=== PATIENT | female | born 1965 | race Caucasian/White ===

== ENCOUNTER 2023-05-09 22:31 | Emergency (ER) | payer OTHER ==
[2023-05-09] MEDS ORDERED: Ibuprofen 600 MG TAB ONE (22:46)
== END 2023-05-09 23:36 | disposition home or self-care (01) ==
LOC: MADERS 22:31
DX: S00.33XA Contusion of nose, initial encounter (principal); S60.221A Contusion of right hand, initial encounter; W18.39XA Other fall on same level, initial encounter
CPT/HCPCS: 70160

== ENCOUNTER 2023-11-23 18:33 | Emergency (ER) | payer OTHER ==
[2023-11-23] MEDS ORDERED: Nitroglycerin 0.4 MG TAB 1 EACH ONE (18:53)
[2023-11-23 19:15] LABS: ALT (SGPT) 22 U/L (8-55); AST (SGOT) 25 U/L (5-34); Albumin 3.9 g/dL (3.5-5.0); Alkaline Phosphatase 103 U/L (40-110); Anion Gap 14 mmol/L (10-20); BUN (Urea Nitrogen) 17 mg/dL (9.8-20.1); Bilirubin, Total 0.3 mg/dL (0.2-1.2); Calc. Creatinine Clearance 0 mL/min (70-130); Carbon Dioxide 25 mmol/L (22-29); Chloride 106 mmol/L (98-107); Estimated GFR 74; Globulin 2.5 g/dL (2.4-3.5); Glucose 85 mg/dL (70-105); Lipase 34 U/L (8-78); Potassium 3.6 mmol/L (3.5-5.1); Protein, Total 6.4 g/dL (6.0-8.3); Sodium 141 mmol/L (136-145); Troponin I Less than 0.010 ng/mL (< 0.028)
[2023-11-23 19:30] LABS: Eosinophils 9 % (0-10); Hematocrit 45.8 % (36.0-47.0); Hemoglobin 13.6 g/dL (12.0-16.0); Lymphocytes 27 % (21-51); MDiff Complete? YES; Manual Diff?? YES; Mean Corpuscular HGB CONC 29.8 g/dL (32.0-36.0); Mean Corpuscular Hemoglobin 27.5 pg (27.0-31.0); Mean Corpuscular Volume 92.5 fl (78.0-98.0); Mean Platelet Volume 7.6 fL (7.4-10.4); Monocytes 1 % (0-10); Neutrophil 33 % (42-75); Platelet Count 227 10x3/uL (130-400); RBC Distribution Width 11.6 % (11.5-14.5); RBC Morph Comment Within Normal Limits; Reactive Lymphocytes 30 % (0-10); Red Blood Cell (RBC) Count 4.95 mill/uL (4.20-5.40); White Blood Cell (WBC) Count 7.8 10x3/uL (4.8-10.8)
[2023-11-23 19:31] LABS: Platelet Adequacy Comment Appears Adequate
[2023-11-23] MEDS ORDERED: Nitroglycerin 2% Ointment 1 INCH/1 GM Packet ONE (20:18)
[2023-11-23] MEDS ORDERED: Mag-Al Plus 1200/1200/120 MG (30 mL) UDCUP ONE (20:19)
[2023-11-23] MEDS ORDERED: Lidocaine 2% Viscous 100 ML BOTTLE ONE (20:19)
[2023-11-23 21:59] LABS: Troponin I Less than 0.010 ng/mL (< 0.028)
== END 2023-11-23 23:26 | disposition home or self-care (01) ==
LOC: MADERS 18:33
DX: R07.9 Chest pain, unspecified (principal); I10 Essential (primary) hypertension; F41.8 Other specified anxiety disorders; M79.7 Fibromyalgia; F17.290 Nicotine dependence, other tobacco product, uncomplicated; Z79.899 Other long term (current) drug therapy; Z79.82 Long term (current) use of aspirin
CPT/HCPCS: 71045; 80053; 83690; 83880; 84484; 85025; 85379; 93005; 94760

== ENCOUNTER 2024-11-12 17:47 | Emergency (ER) | payer OTHER ==
[2024-11-12 18:34] LABS: #Basophils 0.1 thou/uL (0.0-0.2); #Eosinophils 0.5 thou/uL (0.0-0.7); #Monocytes 0.6 thou/uL (0.11-0.59); #Neutrophils 4.8 thou/uL (1.40-6.50); %Basophils 1.3 % (0.0-1.0); %Eosinophils 4.7 % (0.0-10.0); %Lymphocytes 39.6 % (21.0-51.0); %Monocytes 6.3 % (0.0-10.0); Hematocrit 42.4 % (36.0-47.0); Hemoglobin 13.1 g/dL (12.0-16.0); Mean Corpuscular Hemoglobin 28.5 pg (27.0-31.0); Mean Platelet Volume 7.5 fL (7.4-10.4); Platelet Count 281 10x3/uL (130-400); RBC Distribution Width 12.9 % (11.5-14.5)
[2024-11-12 18:48] LABS: ALT (SGPT) 25 U/L (Less than 34); AST (SGOT) 23 U/L (11-34); Albumin 3.9 g/dL (3.1-4.5); Alkaline Phosphatase 108 U/L (40-110); Anion Gap 16 mmol/L (10-20); BUN (Urea Nitrogen) 13 mg/dL (9.8-20.1); Bilirubin, Total 0.4 mg/dL (0.3-1.2); Calc. Creatinine Clearance 0 mL/min (70-130); Calcium 9.4 mg/dL (7.8-10.44); Carbon Dioxide 23 mmol/L (22-29); Chloride 106 mmol/L (98-107); Estimated GFR 92; Globulin 3.3 g/dL (2.4-3.5); Glucose 87 mg/dL (70-105); Potassium 3.5 mmol/L (3.5-5.1); Protein, Total 7.2 g/dL (6.0-8.3); Sodium 141 mmol/L (136-145)
[2024-11-12] MEDS ORDERED: Loratadine 10 MG TAB ONE (19:07)
== END 2024-11-12 19:20 | disposition home or self-care (01) ==
LOC: MADERS 17:47
DX: R60.0 Localized edema (principal); M20.12 Hallux valgus (acquired), left foot; M77.32 Calcaneal spur, left foot; I10 Essential (primary) hypertension; F17.290 Nicotine dependence, other tobacco product, uncomplicated; Z79.899 Other long term (current) drug therapy
CPT/HCPCS: 36415; 80053; 83880; 85025; 85379; 99284